=== PATIENT | female | born 1945 | race Caucasian/White ===

== ENCOUNTER 2019-08-25 16:28 | Observation (INO) ==
[2019-08-25] MEDS ORDERED: ZOFRAN IV PRN (16:54)
[2019-08-25] MEDS ORDERED: TYLENOL PO PRN (16:54)
--- NOTE | 2019-08-25 17:39 | Diag Imaging Result Doc PS360 ---
EXAM: CHEST-PORTABLE 08/25/2019 HISTORY: fever/cough TECHNIQUE: AP portable upright at 1716. COMMENT: The heart size is slightly enlarged. The lungs are clear and the appearance the chest has not changed significantly since 06/29/2019. IMPRESSION: Stable chest. Electronically signed by Angelo Montano 08/25/2019 5:37 PM
[2019-08-25] MEDS: NS + KCL 20 MEQ 1,000 ML IV SCH (18:27)
[2019-08-25] MEDS ORDERED: ROBITUSSIN-DM PO PRN (18:59)
[2019-08-25] MEDS ORDERED: DUONEB (A & A) INH SCH (19:30)
--- NOTE | 2019-08-25 20:09 | HISTORY AND PHYSICAL ---
CHIEF COMPLAINT: Fever, chills, headache, cough. HISTORY OF PRESENT ILLNESS: The patient is a 74-year-old white female followed in my medical practice. She comes in stating she woke up this morning with pronounced aches, especially in her neck. She has had a headache in the right temporal area, and her fever went up to 101.1, and she had chills. She has had a minimal cough. She had dry heaves after eating some cheese toast this morning. She denies diarrhea. Denies abdominal pain. Has had a slight runny nose. She has not had any trips out of the country or to other states, and in fact she has quarantined herself over the past 2 weeks with very minimal outside contact. She has had no exposures to coronavirus that she is aware of. She has had mild shortness of breath. MEDICATIONS PRIOR TO ADMISSION: BuSpar 15 mg p.o. t.i.d., Prozac 40 mg p.o. daily, Diovan 320 mg p.o. daily, hydralazine 50 mg p.o. b.i.d., Toprol-XL 100 mg p.o. daily, Lipitor 40 mg p.o. at bedtime, Synthroid 25 mcg p.o. daily, vitamin D3 at 50,000 international units p.o. daily, Zanaflex 4 mg p.o. b.i.d. p.r.n. per Dr. Smith, her diet clerk, and Lasix 20 mg p.o. every morning. ALLERGIES: NKDA. PAST MEDICAL HISTORY: 1. Fibromyalgia, followed by Dr. Smith, diet clerk. 2. Osteoarthritis, particularly of the spine, followed by Dr. Smith. 3. Gastroesophageal reflux disease. 4. Irritable bowel syndrome. 5. History of benign colon polyps. 6. Hypercholesterolemia. 7. Diverticulosis diagnosed 2004. 8. Hypothyroidism. 9. Hypertension. 10. Mild to moderate coronary artery disease. 11. Depression with anxiety. PAST SURGICAL HISTORY: 1. TYLER/BSO in 1999. 2. BTL. 3. Rectocele and cystocele repair 2003. 4. Right knee arthroscopy, October 2005. 5. Left TKR, July 2011. 6. Left THR, July 2013. 7. Bilateral cataract surgery 2013. 8. Eye surgery again in January 2017. IMMUNIZATIONS: 1. Pneumovax 23 given March 2009. 2. Prevnar 13 given 2015. FAMILY HISTORY: Notable for hypertension in her mother. Mother with diabetes mellitus, stroke in her mother. No myocardial infarctions in the family. Mother and uncle with colon cancer. SOCIAL HISTORY: The patient lives in [place]. She is . Has 3 children. She is a retired reservation manager. Never been a smoker. Does not drink alcohol. REVIEW OF SYSTEMS: Notable for last colonoscopy and EGD being in [address] Rosa[address] She sees Dr. Toscano for skin care. PHYSICAL EXAM: VITAL SIGNS: Height 5 feet 7 inches, blood pressure 156/68, pulse 77, temperature 99.7 with recent Tylenol administration, O2 saturation on room air 90% on 1 check, and then repeat was 93%. GENERAL: Mild to moderately ill-appearing white female. SKIN: She has some mild redness around the cheeks bilaterally, slightly warm feeling. No rashes identified, other than she is been picking at some milia on her right cheek inferiorly, and she has an infected hair that has a scab on it from picking at it, left angle of the mouth. HEENT: PERRL. EOMI. Sclerae clear. TMs normal. Oropharynx: No major redness. Nares: Minimal rhinorrhea. NECK: No lymphadenopathy. No meningeal signs. No TMG, JVD or bruits. CV: Regular rate and rhythm without murmur. LUNGS: Distant breath sounds. Clear to auscultation. BACK: No CVA tenderness. ABDOMEN: Soft, nontender, nondistended. No mass or organomegaly. No rebound or guarding. BREASTS/PELVIC/RECTAL: Deferred. EXTREMITIES: No calf tenderness, cords or edema. Osteoarthritis changes noted at the hands, mild to moderate. NEUROLOGIC: Cranial nerves II-XII intact. Nonfocal. LABORATORY DATA: Flu testing in the office is negative for A and B influenza. ASSESSMENT: 1. Fever and chills. 2. Headache. 3. Minimal cough. 4. Vomiting. 5. Dyspnea. 6. Hypertension. 7. Hypothyroidism. 8. Xord-ct-hcdqkqqp coronary artery disease. 9. Hypercholesterolemia. 10. Fibromyalgia. 11. Osteoarthritis. 12. Gastroesophageal reflux disease. 13. Irritable bowel syndrome. 14. Diverticulosis. PLAN: The patient looks somewhat ill. We will admit her to the hospital. Check CBC, CMP. Check urinalysis, blood cultures x2. Check lactate level. Chest x-ray check. Check coronavirus test. Vigorously hydrate the patient and treat her symptomatically with Robitussin DM, Zofran, IV fluids, Tylenol. cc: Kali Amezcua MD
[2019-08-25 20:11] LABS: BASO# 0.05 X1000 (0.0-0.2); BASO% 0.5 % (0.0-0.8); EOS# 0.03 X1000 (0.0-0.7); EOS% 0.3 % (0.0-10.0); HEMATOCRIT 32.5 % (37.0-47.0); HEMOGLOBIN 10.5 g/dL (12.0-16.0); IMM GRAN# 0.02 X1000 (0.0-0.04); IMM GRAN% 0.2 % (0.0-0.5); LYMPH# 0.66 X1000 (1.2-3.4); LYMPH% 6.9 % (20.5-51.1); MCH 28.2 PG (27-31); MCHC 32.3 g/dL (33-37); MCV 87.4 FL (81-99); MONO% 4.2 % (1.7-9.3); MPV 10.8 FL (7.4-10.4); NEUT% 87.9 % (42.2-75.2); PLT 250 X1000 (130-400); RBC 3.72 XMIL (4.2-5.4); RDW 14.3 % (11.5-14.5); WBC 9.56 X1000 (4.8-10.8)
[2019-08-25 20:12] LABS: AGAP 13; ALB/GLOB RATIO 1.4; ALKALINE PHOSPHATASE 106 U/L (32-104); BUN 10 mg/dL (8-22); CALCIUM 8.9 mg/dL (8.8-10.2); CHLORIDE 95 mmol/L (98-107); COSMO 274; CREATININE 0.8 mg/dL (0.5-0.9); ESTIMATED GFR > 60; GLUCOSE 191 mg/dL (70-104); GOT 23 U/L (10-30); GPT 17 U/L (10-36); POTASSIUM 3.2 mmol/L (3.5-5.1); SODIUM 135 mmol/L (136-145); TCO2 27 mmol/L (25-35); TOTAL BILIRUBIN 1.21 mg/dL (0.20-1.00); TOTAL PROTEIN 6.9 g/dL (6.3-8.3)
[2019-08-25 20:47] LABS: LYMPHS 12 % (21-51); MONO 8 % (1-9); SEGS 80 % (42-75)
[2019-08-25 20:48] LABS: ANISOCYTOSIS 1+; HYPOCHROM 1+
[2019-08-25 21:29] LABS: URINE SOURCE CATH
[2019-08-25 21:33] LABS: BILIRUBIN URINE NEGATIVE (NEGATIVE); BLOOD URINE MODERATE (NEGATIVE); COLOR YELLOW; GLUCOSE URINE NEGATIVE (NEGATIVE); KETONE URINE NEGATIVE (NEGATIVE); LEUKOCYTES URINE NEGATIVE (NEGATIVE); NITRITE URINE NEGATIVE (NEGATIVE); PH URINE 6.5; PROTEIN URINE NEGATIVE (NEGATIVE); SP GRAVITY URINE 1.006; TURBIDITY URINE CLEAR (CLEAR); UROBILINOGEN URINE NORMAL (NORMAL)
[2019-08-25 21:35] LABS: UR EPITHELIAL CELLS <10 /HPF (<10); URINE BACTERIA 2+ /HPF; URINE RBC <10 /HPF (<10); URINE WBC <10 /HPF (<10)
[2019-08-26] MEDS ORDERED: KLOR-CON PO ONE (00:38)
[2019-08-26] MEDS: VENTOLIN HFA INH SCH ×3 (03:47→15:15)
[2019-08-26] MEDS: NS + KCL 20 MEQ 1,000 ML IV SCH ×2 (03:54→14:30)
[2019-08-26 12:35] VITALS: BP 178/72
[2019-08-26] MEDS ORDERED: ZANAFLEX PO PRN (13:28)
[2019-08-26] MEDS ORDERED: ULTRAM PO PRN (13:28)
[2019-08-26] MEDS ORDERED: BUSPAR PO PRN ×2 (13:28→13:48)
[2019-08-26] MEDS ORDERED: SEPTRA DS PO SCH (13:30)
[2019-08-26] MEDS ORDERED: AVAPRO PO SCH (13:30)
[2019-08-26] MEDS ORDERED: SYNTHROID PO SCH (13:30)
--- NOTE | 2019-08-26 14:00 | PROGRESS NOTE ---
DATE: 08/26/2019 SUBJECTIVE: Patient is feeling a little better than she did yesterday. She has no specific complaints. Denies dysuria or urinary frequency. Denies any significant cough. No shortness of breath, just does not feel well. COVID 19 testing is in progress. She did have some episodes of gagging x1 during the night. OBJECTIVE: T-max 99.4 degrees, blood pressure mildly elevated, but off her medications.Cardiovascular: RRR. Lungs: CTA. Back: No CVA tenderness. Abdomen: Nontender. Extremities: No calf tenderness, cords or edema. LABORATORY: Urinalysis, moderate blood, otherwise negative. It shows 2+ bacteria, and the urine culture is growing out gram-negative rods. CMP unremarkable. Plasma lactate normal at 0.8. White count 9.5, hemoglobin 10.5, platelets 250,000, neutrophils 88%, and lymphocytes 6.9. Chest x-ray negative. ASSESSMENT: 1. Fever and vomiting, thought related to the gram-negative alexis urinary tract infection. 2. Headache thought related to #1. 3. Minimal cough seems to be resolved. 4. Hypertension. 5. Hypothyroidism. 6. Amrw-dx-owruwqgp coronary artery disease. 7. Hypercholesterolemia. 8. Fibromyalgia. 9. Osteoarthritis. 10. Gastroesophageal reflux disease. 11. Irritable bowel syndrome. 12. Diverticulosis. 13. Hypokalemia, treated with oral 40 mEq of potassium x1, and IV fluids containing potassium supplementation. PLAN: We will start her on Bactrim DS, and make sure she tolerates that orally. If she does, she does desire to go home, and I believe we have an answer to her problem now. She was quite asymptomatic from the UTI, but indeed she is growing out gram-negative rods, and I believe that is the source of her fever and her illness. We will start her on Bactrim DS, Zofran, and continue her home medications with heavy water intake. Advised her to quarantine in for the next 2 weeks without question until at least we get the COVID 19 test results back. If she worsens, she knows to come to my office or to the ER. Notably, blood cultures x2 are negative at this point. cc: Kali Amezcua MD
[2019-08-26] MEDS ORDERED: APRESOLINE PO SCH (21:00)
[2019-08-26] MEDS ORDERED: LIPITOR PO SCH (21:00)
[2019-08-27] MEDS ORDERED: BUSPAR PO SCH (09:00)
[2019-08-27] MEDS ORDERED: PROZAC PO SCH (09:00)
[2019-08-27] MEDS ORDERED: TOPROL XL PO SCH (09:00)
[2019-08-27] MEDS ORDERED: LASIX PO SCH (09:00)
== END 2019-08-26 15:59 | disposition home or self-care (01) ==
LOC: DIRADM → 3N 16:28
PROVIDERS: ADMIT Family Medicine; ATTEND Family Medicine